=== PATIENT | male | born 1995 | race Hispanic/Latino ===

== ENCOUNTER 2018-01-29 05:10 | Emergency (ER) | payer OTHER, SELFPAY ==
[2018-01-29] MEDS ORDERED: ACETAMINOPHEN 500 MG TAB ONE ×2 (06:36→06:58)
[2018-01-29] MEDS ORDERED: NA CHLORIDE 0.9% 0 ML ONE (06:36)
[2018-01-29 06:44] LABS: Absolute Lymphocytes (CBC) 1.4 K/uL (0.7-4.9); Absolute Monocytes 1.2 K/uL (0.1-1.3); Absolute Neutrophil 7.7 K/uL (1.8-8.0); Basophils % 0.1 % (0-1.3); Eosinophils % 0.2 % (0-4.4); Hematocrit 41.6 % (39.6-49.0); Lymphocytes % 13.2 % (15.3-44.8); MCV 83.3 fL (80-100); MPV 8.1 fL (7.6-11.3); Monocytes % 12.1 % (3.3-12.3); RBC Red Blood Cell Count 4.99 M/uL (4.33-5.43)
[2018-01-29 06:58] LABS: BUN Blood Urea Nitrogen 10 mg/dL (7-18); Bicarbonate 27 mmol/L (21-32); Glucose Level 97 mg/dL (74-106); Potassium 3.7 mmol/L (3.5-5.1); Sodium Level 136 mmol/L (136-145)
[2018-01-29] MEDS ORDERED: METOCLOPRAMIDE 10 MG/2mL INJ ONE (06:58)
[2018-01-29] MEDS ORDERED: ONDANSETRON 4 MG/2 ML VIAL ONE (06:58)
[2018-01-29] MEDS ORDERED: DIPHENHYDRAMINE 50 MG/ML VIAL ONE (06:58)
[2018-01-29] MEDS ORDERED: NA CHLORIDE 0.9% 2,000 ML ONE (06:58)
[2018-01-29 08:02] LABS: Urine Blood NEGATIVE (NEG); Urine Glucose NEGATIVE (NEG); Urine Protein NEGATIVE (NEG); Urine Specific Gravity 1.015 (1.005-1.030); Urine pH 7.5 (5.0-7.0)
--- NOTE | 2018-01-29 08:04 | RAD REPORT ---
EXAM DESCRIPTION: CT - Head Brain Wo Cont - 01/29/2018 7:32 am CLINICAL HISTORY: Headache;Fever COMPARISON: No comparisons TECHNIQUE: All CT scans are performed using dose optimization technique as appropriate and may inclu de automated exposure control or mA/KV adjustment according to patient size. FINDINGS: No intracranial hemorrhage, hydrocephalus or extra-axial fluid collection.No areas of brai n edema or evidence of midline shift. The paranasal sinuses and mastoids are clear. The calvarium is intact. IMPRESSION: No acute intracranial abnormality.
--- NOTE | 2018-01-29 08:18 | EDPHYS ---
Physician Documentation [facility] Name: Geraldo Bradford IV Age: 22 yrs Sex: Male : 1995 Arrival Date: 01/29/2018 Time: 05:13 Bed 8 Private MD: ED Physician Jeferson Washington HPI: 01/29 06:21 This 22 yrs old Male presents to ER via Ambulatory with complaints of Headache.cp 06:21 The patient complains of pain to the top of head and back of head. The patient cp describes the headache as aching, constant. Onset: The symptoms/episode began/occurred 2 day(s) ago. Associated signs and symptoms: Pertinent positives: fever, Photophobia Pertinent negatives: altered mental status, neck stiffness, sinus congestion, sinus tenderness, vision loss, weakness. Severity of symptoms: in the emergency department the pain is unchanged, despite home interventions. Headache History: The patient has had previous headaches and this one is more severe than previous episodes. Historical: - Allergies: 05:24 No Known Allergies; bp - Home Meds: 05:24 None [Active]; bp - PMHx: 05:24 None; bp - Immunization history:: Adult Immunizations up to date. - Social history:: Smoking status: Patient/guardian denies using tobacco. - Ebola Screening: : Patient negative for fever greater than or equal to 101.5 degrees Fahrenheit, and additional compatible Ebola Virus Disease symptoms Patient denies exposure to infectious person Patient denies travel to an Ebola-affected area in the 21 days before illness onset No symptoms or risks identified at this time. ROS: 06:21 Constitutional: Positive for fever, Negative for body aches, chills, poor PO intake. cp 06:21 Eyes: Positive for photophobia, Negative for discharge, redness, vision loss. 06:21 ENT: Positive for sore throat, Negative for drainage from ear(s), ear pain, difficulty swallowing, difficulty handling secretions. 06:21 Cardiovascular: Negative for chest pain, edema, palpitations. 06:21 Respiratory: Negative for cough, shortness of breath, wheezing. 06:21 Abdomen/GI: Negative for abdominal pain, nausea, vomiting, and diarrhea. 06:21 : Negative for urinary symptoms. 06:21 Skin: Negative for cellulitis, rash. 06:21 Neuro: Positive for headache, Negative for altered mental status, dizziness, weakness. 06:21 All other systems are negative. Exam: 06:25 Constitutional: The patient appears in no acute distress, alert, awake, non-toxic, well cp developed, well nourished, uncomfortable. 06:25 Head/Face: Normocephalic, atraumatic. cp 06:25 Eyes: Periorbital structures: appear normal, Pupils: equal, round, and reactive to light and accomodation, Extraocular movements: intact throughout, Conjunctiva: normal, no exudate, no injection, Sclera: no appreciated abnormality, Lids and lashes: appear normal, bilaterally. 06:25 ENT: External ear(s): are unremarkable, Ear canal(s): are normal, clear, TM's: bulging, is not appreciated, bilaterally, dullness, bilaterally, erythema, is not appreciated, bilaterally, Nose: is normal, Mouth: Lips: moist, Oral mucosa: pink and intact, moist, Posterior pharynx: is normal, airway is patent, no erythema, no exudate, Voice: is normal. 06:25 Neck: ROM/movement: pain, is not appreciated, limited range of motion, is not appreciated, nuchal rigidity, is not appreciated, Lymph nodes: no appreciated lymphadenopathy. 06:25 Chest/axilla: Inspection: normal, Palpation: is normal, no crepitus, no tenderness. 06:25 Cardiovascular: Rate: normal, Rhythm: regular, Edema: is not appreciated, JVD: is not appreciated. 06:25 Respiratory: the patient does not display signs of respiratory distress, Respirations: normal, no use of accessory muscles, no retractions, no splinting, no tachypnea, labored breathing, is not present, Breath sounds: are clear throughout, no decreased breath sounds, no stridor, no wheezing. 06:25 Abdomen/GI: Inspection: abdomen appears normal, Bowel sounds: active, all quadrants, Palpation: abdomen is soft and non-tender, in all quadrants, rebound tenderness, is not appreciated, voluntary guarding, is not appreciated, involuntary guarding, is not appreciated. 06:25 Back: pain, is absent, ROM is normal. 06:25 Skin: cellulitis, is not appreciated, no rash present. cp 06:25 Neuro: Orientation: to person, place \T\ time. Mentation: lucid, able to follow commands, cp Cerebellar function: is grossly normal, Motor: moves all fours, strength is normal, Sensation: no obvious gross deficits. Vital Signs: 05:24 BP 132 / 67; Pulse 94; Resp 16; Temp 101.7; Pulse Ox 99% ; Weight 88.45 kg; Height 5 bp ft. 10 in. (177.80 cm); 05:57 BP 134 / 70; Pulse 94; Resp 16; Pulse Ox 100% ; bp 07:03 BP 119 / 68; Pulse 97; Resp 18; Pulse Ox 98% on R/A; tl2 08:00 BP 112 / 63; Pulse 78; Resp 14; Temp 99.4(O); Pulse Ox 99% on R/A; Pain 4/10; ch 08:30 BP 118 / 71; Pulse 74; Resp 18; Temp 99.6; Pulse Ox 99% on R/A; Pain 2/10; ch 05:24 Body Mass Index 27.98 (88.45 kg, 177.80 cm) bp MDM: 05:17 Patient medically screened. wa 07:00 Differential diagnosis: meningitis, meningoencephalitis, migraine, otitis, sinusitis, cp subarachnoid bleed, tension headache. 07:44 Refusal of service: The patient/guardian displays adequate decision making capability cp and despite a detailed discussion of alternatives, benefits, risks, and consequences refuses: Lumbar Puncture procedure. 08:15 Data reviewed: vital signs, nurses notes, lab test result(s), radiologic studies, CT cp scan. 08:15 Counseling: I had a detailed discussion with the patient and/or guardian regarding: the cp historical points, exam findings, and any diagnostic results supporting the discharge/admit diagnosis, lab results, radiology results. Refusal of service: The patient/guardian displays adequate decision making capability and despite a detailed discussion of alternatives, benefits, risks, and consequences refuses: Lumbar Puncture procedure. ED course: VSS. Fever and headache improved. Patient continues to refuse spinal tap. Will discharge to home for continued monitoring. 01/29 06:20 Order name: CBC with Diff; Complete Time: 06:58 cp 01/29 06:58 Interpretation: Normal except: OPAL% 74.4; LYM% 13.2. cp 01/29 06:20 Order name: Strep; Complete Time: 07:15 cp 01/29 06:20 Order name: Influenza Screen (a \T\ B); Complete Time: 07:15 cp 01/29 06:20 Order name: BMP; Complete Time: 07:15 01/29 08:05 Interpretation: Normal except: CA 8.4. 01/29 06:20 Order name: Blood Culture Adult (2) 01/29 06:20 Order name: Lactate; Complete Time: 07:15 cp 01/29 08:05 Interpretation: LAC 0.8; Reviewed. 01/29 06:20 Order name: CT Head Brain wo Cont; Complete Time: 08:05 cp 01/29 08:05 Interpretation: Report reviewed. 01/29 06:20 Order name: Procalcitonin; Complete Time: 08:04 01/29 08:04 Interpretation: Within normal limits: Procalcitonin 0.17. 01/29 07:04 Order name: Throat Culture EDMS 01/29 07:58 Order name: Urine Dipstick--Ancillary (enter results); Complete Time: 08:04 bd 01/29 08:04 Interpretation: Normal except: UPH 7.5. 01/29 06:20 Order name: IV; Complete Time: 06:50 cp Administered Medications: 07:01 Drug: Tylenol 1000 mg Route: PO; tl2 07:28 Follow up: Response: No adverse reaction; Marked relief of symptoms ch 07:01 Drug: NS 0.9% 1000 ml Route: IV; Rate: 1 bolus; Site: right antecubital; tl2 07:30 Follow up: IV Status: Completed infusion; IV Intake: 1000ml ch 07:05 Drug: Benadryl 12.5 mg Route: IVP; Site: right antecubital; bp 07:53 Follow up: Response: No adverse reaction; Marked relief of symptoms ch 07:06 Drug: Zofran 4 mg Route: IVP; Site: right antecubital; bp 07:53 Follow up: Response: No adverse reaction; Marked relief of symptoms ch 07:06 Drug: Reglan 10 mg Route: IVP; Site: right antecubital; bp 07:53 Follow up: Response: No adverse reaction; Marked relief of symptoms ch 07:54 Drug: NS 0.9% 1000 ml Route: IV; Rate: 125 ml/hr; Site: right antecubital; ch 08:30 Follow up: IV Status: Order to discontinue infusion; IV Intake: 250ml ch Disposition: 09:00 Chart complete. cp 20:44 Co-signature as Attending Physician, Jeferson Washington MD I agree with the assessment and wa plan of care. Disposition: 01/29/18 08:17 Discharged to Home. Impression: Headache, Fever, unspecified. - Condition is Stable. - Discharge Instructions: Fever, Adult, General Headache Without Cause. - Prescriptions for Ibuprofen 800 mg Oral Tablet - take 1 tablet by ORAL route every 8 hours As needed take with food; 30 tablet. Zofran 4 mg Oral Tablet - take 1 tablet by ORAL route every 12 hours As needed; 20 tablet. - Work release form, Medication Reconciliation Form, Thank You Letter, Antibiotic Education, Prescription Opioid Use form. - Follow up: Private Physician; When: 1 - 2 days; Reason: Recheck today's complaints. - Problem is new. - Symptoms have improved. Signatures: Dispatcher [employer] EDMO Lucrecia Chapman RN RN Jonnie Kendall PA PA Leida Sykes RN RN tl2 Jeferson Washington MD MD wa Peltier, Brian RN RN bp Corrections: (The following items were deleted from the chart) 07:53 07:28 LP Consents ordered. cp 07:53 07:28 LP Setup ordered. cp 08:05 08:04 Normal except. cp cp 08:35 08:17 01/29/2018 08:17 Discharged to Home. Impression: Headache; Fever, unspecified. ch Condition is Stable. Forms are Work release form, Medication Reconciliation Form, Thank You Letter, Antibiotic Education, Prescription Opioid Use. Follow up: Private Physician; When: 1 - 2 days; Reason: Recheck today's complaints. Problem is new. Symptoms have improved. cp
--- NOTE | 2018-01-29 08:18 | ER ---
Nurse's Notes [facility] Name: Geraldo Bradford IV Age: 22 yrs Sex: Male : 1995 Arrival Date: 01/29/2018 Time: 05:13 Bed 8 Private MD: Diagnosis: Headache;Fever, unspecified Presentation: 01/29 05:23 Presenting complaint: Patient states: MY HEAD BEEN HURTING FOR TWO DAYS. Transition of bp care: patient was not received from another setting of care. Onset of symptoms was January 27, 2018. Risk Assessment: Do you want to hurt yourself or someone else? Patient reports no desire to harm self or others. Initial Sepsis Screen: Does the patient meet any 2 criteria? Temp <36.0*C (96.8*F)) or > 38.3*C (100.4*F). No. Patient's initial sepsis screen is negative. Does the patient have a suspected source of infection? No. Patient's initial sepsis screen is negative. Care prior to arrival: None. 05:23 Method Of Arrival: Ambulatory bp 05:23 Acuity: MARIANNE 4 bp Triage Assessment: 05:24 Headache History: Denies prior headaches. General: Appears in no apparent distress. bp uncomfortable, ill, Behavior is cooperative, appropriate for age, anxious. Pain: Complains of pain in forehead, right eye and left eye Pain currently is 7 out of 10 on a pain scale. Pain began 2-3 days ago. Also complains of nausea, photophobia. EENT: Reports photophobia. Neuro: Level of Consciousness is awake, alert, obeys commands, Oriented to person, place, time, situation, Appropriate for age. Cardiovascular: No deficits noted. Respiratory: Airway is patent Respiratory effort is even, unlabored, Respiratory pattern is regular, symmetrical. GI: No signs and/or symptoms were reported involving the gastrointestinal system. : No signs and/or symptoms were reported regarding the genitourinary system. Derm: No deficits noted. Musculoskeletal: Circulation, motion, and sensation intact. Range of motion: intact in all extremities. Historical: - Allergies: 05:24 No Known Allergies; bp - Home Meds: 05:24 None [Active]; bp - PMHx: 05:24 None; bp - Immunization history:: Adult Immunizations up to date. - Social history:: Smoking status: Patient/guardian denies using tobacco. - Ebola Screening: : Patient negative for fever greater than or equal to 101.5 degrees Fahrenheit, and additional compatible Ebola Virus Disease symptoms Patient denies exposure to infectious person Patient denies travel to an Ebola-affected area in the 21 days before illness onset No symptoms or risks identified at this time. Screenin:28 Abuse screen: Denies threats or abuse. Denies injuries from another. Nutritional bp screening: No deficits noted. Tuberculosis screening: No symptoms or risk factors identified. Fall Risk None identified. Assessment: 05:28 General: SEE TRIAGE NOTE. bp 06:50 General: Appears in no apparent distress. comfortable, Behavior is calm, cooperative, ch appropriate for age. Pain: Complains of pain in head and face Pain currently is 8 out of 10 on a pain scale. at worst was 9 out of 10 on a pain scale. Pain began suddenly. 06:50 Neuro: Level of Consciousness is awake, alert, obeys commands, Oriented to person, ch place, time, situation, Special Warfare Operator are equal bilaterally Moves all extremities. Full function Gait is steady, Speech is normal, Facial symmetry appears normal, Facial symmetry: tongue is midline, Pupils are PERRLA, Reports headache. Cardiovascular: Heart tones S1 S2 present Capillary refill < 3 seconds in bilateral fingers toes Clubbing of nail beds is absent. Respiratory: Airway is patent Respiratory effort is even, unlabored, Breath sounds are clear bilaterally. GI: Abdomen is round non-distended, Bowel sounds present X 4 quads. Abd is soft and non tender X 4 quads. Reports nausea. : No signs and/or symptoms were reported regarding the genitourinary system. EENT: Reports nasal congestion. Derm: Skin is pink, warm \T\ dry. Musculoskeletal: Circulation, motion, and sensation intact. Capillary refill < 3 seconds, in bilateral fingers. toes. 07:52 Reassessment: Patient appears in no apparent distress at this time. Patient and/or ch family updated on plan of care and expected duration. Pain level reassessed. Patient is alert, oriented x 3, equal unlabored respirations, skin warm/dry/pink. pt refuses spinal tap. Jonnie page notified. Page in room, speaks with pt, pt still refuses spinal tap after verb understanding that we cannot rule out meningitis without it. pt verb understanding of risks Patient states feeling better. Patient states symptoms have improved. 08:00 Reassessment: Patient appears in no apparent distress at this time. Patient and/or ch family updated on plan of care and expected duration. Pain level reassessed. Patient is alert, oriented x 3, equal unlabored respirations, skin warm/dry/pink. Patient states feeling better. Patient states symptoms have improved. 08:30 Reassessment: Patient appears in no apparent distress at this time. No changes from previously documented assessment. Patient and/or family updated on plan of care and expected duration. Pain level reassessed. Patient is alert, oriented x 3, equal unlabored respirations, skin warm/dry/pink. Patient denies pain at this time. Patient states feeling better. Patient states symptoms have improved. Vital Signs: 05:24 BP 132 / 67; Pulse 94; Resp 16; Temp 101.7; Pulse Ox 99% ; Weight 88.45 kg; Height 5 bp ft. 10 in. (177.80 cm); 05:57 BP 134 / 70; Pulse 94; Resp 16; Pulse Ox 100% ; bp 07:03 BP 119 / 68; Pulse 97; Resp 18; Pulse Ox 98% on R/A; tl2 08:00 BP 112 / 63; Pulse 78; Resp 14; Temp 99.4(O); Pulse Ox 99% on R/A; Pain 4/10; ch 08:30 BP 118 / 71; Pulse 74; Resp 18; Temp 99.6; Pulse Ox 99% on R/A; Pain 2/10; ch 05:24 Body Mass Index 27.98 (88.45 kg, 177.80 cm) bp ED Course: 05:13 Patient arrived in ED. do 05:17 Jeferson Washington MD is Attending Physician. wa 05:23 Carlos Frankel, QIAN is Primary Nurse. bp 05:24 Triage completed. bp 05:24 Arm band placed on left wrist. bp 05:28 Patient has correct armband on for positive identification. Bed in low position. Call bp light in reach. Side rails up X2. 06:13 Jonnie Kendall PA is PHCP. cp 06:13 Jeferson Washington MD is Attending Physician. cp 06:30 Inserted saline lock: 20 gauge in right antecubital area, using aseptic technique. ch 07:32 CT Head Brain wo Cont In Process Unspecified. EDMS 08:30 Pulse ox on. NIBP on. ch 08:30 No provider procedures requiring assistance completed. IV discontinued, intact, ch bleeding controlled, No redness/swelling at site. Pressure dressing applied. Administered Medications: 07:01 Drug: Tylenol 1000 mg Route: PO; tl2 07:28 Follow up: Response: No adverse reaction; Marked relief of symptoms ch 07:01 Drug: NS 0.9% 1000 ml Route: IV; Rate: 1 bolus; Site: right antecubital; tl2 07:30 Follow up: IV Status: Completed infusion; IV Intake: 1000ml ch 07:05 Drug: Benadryl 12.5 mg Route: IVP; Site: right antecubital; bp 07:53 Follow up: Response: No adverse reaction; Marked relief of symptoms ch 07:06 Drug: Zofran 4 mg Route: IVP; Site: right antecubital; bp 07:53 Follow up: Response: No adverse reaction; Marked relief of symptoms ch 07:06 Drug: Reglan 10 mg Route: IVP; Site: right antecubital; bp 07:53 Follow up: Response: No adverse reaction; Marked relief of symptoms ch 07:54 Drug: NS 0.9% 1000 ml Route: IV; Rate: 125 ml/hr; Site: right antecubital; ch 08:30 Follow up: IV Status: Order to discontinue infusion; IV Intake: 250ml ch Intake: 07:30 IV: 1000ml; Total: 1000ml. ch 08:30 IV: 250ml; Total: 1250ml. ch Outcome: 08:17 Discharge ordered by . cp 08:30 Discharged to home ambulatory, with family. ch 08:30 Condition: stable 08:30 Discharge instructions given to patient, family, Instructed on discharge instructions, follow up and referral plans. medication usage, Demonstrated understanding of instructions, follow-up care, medications, Prescriptions given X 2. 08:35 Patient left the ED. ch Signatures: Dispatcher [employer] EDMS Lucrecia Chapman RN RN ch Jonnie Kendall PA PA cp Ogletree, Danielle do Knox, Taylor RN RN tl2 Jeferson Washington MD MD wa Peltier, Brian RN RN bp
== END 2018-01-29 08:35 | disposition home or self-care (01) ==
LOC: ER 05:10
DX: R51 Headache (principal)
CPT/HCPCS: 36415; 70450; 80048; 81003; 83605; 84145; 85025; 87040; 87070; 87081; 87804; 96361; 96374; 96375; 99284; J2405; J2765; J7030

== ENCOUNTER 2021-02-21 15:12 | Emergency (ER) | payer SELFPAY ==
--- NOTE | 2021-02-21 18:46 | EDPHYS ---
Physician Documentation [facility] Name: Geraldo Bradford IV Age: 25 yrs Sex: Male : 1995 Arrival Date: 02/21/2021 Time: 15:15 Bed Waiting Private MD: ED Physician David Gastelum HPI: 02/21 16:08 This 25 yrs old Male presents to ER via Ambulatory with complaints of pm1 Dizziness. 16:08 The patient complains of pain to the forehead. The patient describes the headache as pm1 aching. Onset: The symptoms/episode began/occurred this morning. Associated signs and symptoms: The patient has no apparent associated signs or symptoms, Pertinent negatives: nausea, neck stiffness, rash, vomiting. Severity of symptoms: in the emergency department the pain has resolved, With sleep. The symptoms are alleviated by sleep, the symptoms are aggravated by nothing. The patient has not experienced similar symptoms in the past. The patient has not recently seen a physician. Patient with onset headache and dizziness this morning. Went back to sleep and his headache resolved. Informed his employer that he was having a headache and was instructed to get a return back to work and a Covid test. Historical: - Allergies: 15:54 No Known Allergies; kg - Home Meds: 15:54 None [Active]; kg - PMHx: 15:54 None; kg - PSHx: 15:54 None; kg - Immunization history:: Adult Immunizations not up to date, Client reports having NOT received the Covid vaccine. - Social history:: Smoking status: Patient denies any tobacco usage or history of. Patient uses alcohol, weekly. ROS: 16:08 Constitutional: Negative for fever, chills, and weight loss, Cardiovascular: Negative pm1 for chest pain, palpitations, and edema, Respiratory: Negative for shortness of breath, cough, wheezing, and pleuritic chest pain, Abdomen/GI: Negative for abdominal pain, nausea, vomiting, diarrhea, and constipation, Back: Negative for injury and pain, MS/Extremity: Negative for injury and deformity, Skin: Negative for injury, rash, and discoloration. 16:08 Neuro: Positive for dizziness, headache, Negative for numbness, tingling, weakness. 16:08 All other systems are negative. Exam: 16:08 Constitutional: This is a well developed, well nourished patient who is awake, alert, pm1 and in no acute distress. Head/Face: Normocephalic, atraumatic. 16:08 Skin: Warm, dry with normal turgor. Normal color with no rashes, no lesions, and no evidence of cellulitis. MS/ Extremity: Pulses equal, no cyanosis. Neurovascular intact. Full, normal range of motion. 16:08 Eyes: Exam is negative for acute changes, Periorbital structures: appear normal, Pupils: no acute changes, Extraocular movements: no acute changes, Conjunctiva: no acute changes, no injection, Sclera: no acute changes, icterus, is not appreciated. 16:08 ENT: Exam is negative for acute changes, TM's: no acute changes, Nose: no acute changes, Mouth: is normal, no acute changes, Posterior pharynx: Tonsils: bilaterally enlarged, with erythema, no exudate, no ulcerations, erythema, that is mild, peritonsillar mass, is not appreciated, pooling of secretions, is not appreciated. 16:08 Neck: Exam negative for acute changes, ROM/movement: no acute changes. 16:08 Chest/axilla: Exam negative for acute changes. 16:08 Cardiovascular: Rate: normal, Rhythm: regular, Pulses: no pulse deficits are appreciated. 16:08 Respiratory: Exam negative for acute changes, respiratory distress, shortness of breath. 16:08 Neuro: Exam negative for acute changes, Orientation: is normal, Mentation: is normal, Cranial nerves: CN II- XII are normal as tested, Motor: is normal, moves all fours, Gait: is steady, at a normal pace, without difficulty. Vital Signs: 15:54 BP 142 / 89; Pulse 78; Resp 18; Temp 98.0(TE); Pulse Ox 100% on R/A; Weight 97.52 kg; kg Height 5 ft. 10 in. (177.80 cm); Pain 7/10; 15:54 Body Mass Index 30.85 (97.52 kg, 177.80 cm) kg MDM: 16:13 Data reviewed: vital signs. Data interpreted: Pulse oximetry: on room air is 100 %. pm1 Interpretation: normal. 16:13 Patient medically screened. pm1 18:44 ED course: Patient has appointment with local pharmacy for covid testing on Sunday. pm1 Recommended to the patient to keep appointment and get testing so he can return to work safely.. 18:45 Counseling: I had a detailed discussion with the patient and/or guardian regarding: the pm1 historical points, exam findings, and any diagnostic results supporting the discharge/admit diagnosis, lab results, the need for outpatient follow up, to return to the emergency department if symptoms worsen or persist or if there are any questions or concerns that arise at home. 02/21 16:07 Order name: Strep; Complete Time: 18:44 pm1 02/21 18:20 Order name: Throat Culture EDMS 02/21 18:40 Order name: SARS-COV-2 RT PCR; Complete Time: 18:44 EDMS Administered Medications: No medications were administered Disposition: 02/22 06:58 Co-signature as Attending Physician, David Gastelum MD I agree with the assessment and rn plan of care. Attestation: The patient's history, exam findings, diagnostics, and a summary of any interventions or procedures was reviewed in detail with Gene Trevizo NP. Disposition Summary: 02/21/21 18:45 Discharge Ordered Location: Home pm1 Problem: new pm1 Symptoms: have improved pm1 Condition: Stable pm1 Diagnosis - Headache pm1 - Acute pharyngitis, unspecified pm1 Followup: pm1 - With: Emergency Department - When: As needed - Reason: Worsening of condition Followup: pm1 - With: Private Physician - When: 2 - 3 days - Reason: Recheck today's complaints, Continuance of care, Re-evaluation by your physician Discharge Instructions: - Discharge Summary Sheet pm1 - General Headache Without Cause pm1 - Pharyngitis pm1 Forms: - Medication Reconciliation Form pm1 - Thank You Letter pm1 - Work release form pm1 - Antibiotic Education pm1 - Prescription Opioid Use pm1 Signatures: Dispatcher [employer] EDMS David Gastelum MD MD rn Marinas, Patrick, NP COMMUNITY HEALTH EDUCATION COORDINATOR pm1 Crystal Dang RN RN kg Corrections: (The following items were deleted from the chart) 02/21 17:46 16:08 CORONAVIRUS+ ordered. EDMS EDMS
--- NOTE | 2021-02-21 18:46 | ER ---
Nurse's Notes [facility] Name: Geraldo Bradford IV Age: 25 yrs Sex: Male : 1995 Arrival Date: 02/21/2021 Time: 15:15 Bed Waiting Private MD: Diagnosis: Headache;Acute pharyngitis, unspecified Presentation: 02/21 15:52 Chief complaint: Patient states: Lightheaded and dizziness starting this AM. kg Coronavirus screen: Client denies travel out of the [place] in the last 14 days. At this time, unable to obtain information related to travel outside the [place] At this time, the client does not indicate any symptoms associated with coronavirus-19. Ebola Screen: Patient negative for fever greater than or equal to 101.5 degrees Fahrenheit, and additional compatible Ebola Virus Disease symptoms Patient denies exposure to infectious person. Patient denies travel to an Ebola-affected area in the 21 days before illness onset. Initial Sepsis Screen: Does the patient meet any 2 criteria? No. Patient's initial sepsis screen is negative. Does the patient have a suspected source of infection? No. Patient's initial sepsis screen is negative. Risk Assessment: Do you want to hurt yourself or someone else? Patient reports no desire to harm self or others. Onset of symptoms was February 21, 2021 at 04:30. 15:52 Method Of Arrival: Ambulatory kg 15:52 Acuity: MARIANNE 4 kg Triage Assessment: 15:54 General: Appears in no apparent distress. Behavior is calm, cooperative, appropriate kg for age, quiet. Pain: Complains of pain in Head Pain currently is 7 out of 10 on a pain scale. Quality of pain is described as throbbing. Historical: - Allergies: 15:54 No Known Allergies; kg - Home Meds: 15:54 None [Active]; kg - PMHx: 15:54 None; kg - PSHx: 15:54 None; kg - Immunization history:: Adult Immunizations not up to date, Client reports having NOT received the Covid vaccine. - Social history:: Smoking status: Patient denies any tobacco usage or history of. Patient uses alcohol, weekly. Screenin:59 Abuse screen: Denies threats or abuse. Denies injuries from another. Nutritional kg screening: No deficits noted. Tuberculosis screening: No symptoms or risk factors identified. Fall Risk None identified. Vital Signs: 15:54 BP 142 / 89; Pulse 78; Resp 18; Temp 98.0(TE); Pulse Ox 100% on R/A; Weight 97.52 kg; kg Height 5 ft. 10 in. (177.80 cm); Pain 7/10; 15:54 Body Mass Index 30.85 (97.52 kg, 177.80 cm) kg ED Course: 15:15 Patient arrived in ED. ds1 15:54 Triage completed. kg 15:54 Arm band placed on right wrist. kg 15:59 Patient has correct armband on for positive identification. kg 16:07 Gene Trevizo NP is PHCP. pm1 16:07 David Gastelum MD is Attending Physician. pm1 19:08 No provider procedures requiring assistance completed. Patient did not have IV access kg during this emergency room visit. Administered Medications: No medications were administered Outcome: 18:45 Discharge ordered by MD. pm1 19:08 Discharged to home ambulatory. kg 19:08 Condition: good 19:08 Discharge instructions given to patient, Instructed on discharge instructions, follow up and referral plans. Demonstrated understanding of instructions, follow-up care. 19:09 Patient left the ED. kg Signatures: Bianca Tobias ds1 Gene Trevizo NP [employer] pm1 Crystal Dang, RN RN kg
[2021-02-21 19:14] VITALS: BP 142/89; TEMP 98; O2SAT 100
== END 2021-02-21 19:09 | disposition home or self-care (01) ==
LOC: ER 15:12
DX: J02.9 Acute pharyngitis, unspecified (principal); Z20.822 Contact with and (suspected) exposure to COVID-19
CPT/HCPCS: 87070; 87081; 99281; U0003

== ENCOUNTER 2022-07-21 06:28 | Emergency (ER) | payer SELFPAY ==
[2022-07-21] MEDS ORDERED: AZITHROMYCIN 250 MG TAB ONE (07:11)
--- NOTE | 2022-07-21 07:32 | RAD REPORT ---
EXAM DESCRIPTION: Tali Single View07/21/2022 6:55 am CLINICAL HISTORY: Cough COMPARISON: none FINDINGS: The lungs appear clear of acute infiltrate. The heart is normal size IMPRESSION: No acute abnormalities displayed
[2022-07-21 07:33] LABS: SARS-COV-2 RT PCR NEGATIVE (NEGATIVE)
[2022-07-21] MEDS ORDERED: dexAMETHasone 10 MG/ML VIAL ONE (07:42)
--- NOTE | 2022-07-21 07:43 | ER ---
Nurse's Notes [facility] Name: Geraldo Bradford IV Age: 26 yrs Sex: Male : 1995 Arrival Date: 07/21/2022 Time: 06:32 Bed 5 Private MD: Diagnosis: Acute pharyngitis, unspecified;Cough;Acute upper respiratory infection, unspecified;Fever, unspecified Presentation: 07/21 06:39 Chief complaint: Patient states: congestion, sore throat and cough starting yesterday lg3 and getting worse. denies any fever. Coronavirus screen: Client denies travel out of the [place] in the last 14 days. Client presents with at least one sign or symptom that may indicate coronavirus-19. Standard/surgical mask placed on the client. Ebola Screen: No symptoms or risks identified at this time. Risk Assessment: Do you want to hurt yourself or someone else? Patient reports no desire to harm self or others. Onset of symptoms was July 20, 2022. 06:39 Method Of Arrival: Ambulatory lg3 06:39 Acuity: MARIANNE 4 lg3 07:41 Initial Sepsis Screen: Does the patient meet any 2 criteria? No. Patient's initial ll1 sepsis screen is negative. Does the patient have a suspected source of infection? Yes: Productive cough/pneumonia. Triage Assessment: 06:40 General: Appears in no apparent distress. comfortable, Behavior is calm, cooperative, lg3 appropriate for age. Pain: Complains of pain in throat. EENT:. Neuro: No deficits noted. Serrato Agitation-Sedation Scale (RASS): 0 - Alert and Calm Level of Consciousness is awake, alert, obeys commands, Oriented to person, place, time, situation. Cardiovascular: No deficits noted. Denies chest pain, shortness of breath, Capillary refill < 3 seconds Clubbing of nail beds is absent JVD is absent Patient's skin is warm and dry. Respiratory: Reports cough that is Airway is patent Trachea midline Respiratory effort is even, unlabored, Respiratory pattern is regular, symmetrical. GI: No deficits noted. No signs and/or symptoms were reported involving the gastrointestinal system. : No deficits noted. No signs and/or symptoms were reported regarding the genitourinary system. Derm: No deficits noted. No signs and/or symptoms reported regarding the dermatologic system. Skin is intact, is healthy with good turgor, Skin is dry, Skin is normal. Musculoskeletal: No deficits noted. No signs and/or symptoms reported regarding the musculoskeletal system. Circulation, motion, and sensation intact. Range of motion: intact in all extremities. Historical: - Allergies: 06:40 No Known Allergies; lg3 - Home Meds: 06:40 None [Active]; lg3 - PMHx: 06:40 None; lg3 - PSHx: 06:40 None; lg3 - Immunization history:: Adult Immunizations unknown, Client reports having NOT received the Covid vaccine. Flu vaccine is not up to date. - Social history:: Smoking status: Patient denies any tobacco usage or history of. Patient/guardian denies using alcohol, street drugs, IV drugs. - Family history:: not pertinent. Screenin:42 [facility] ED Fall Risk Assessment (Adult) History of falling in the last 3 months, lg3 including since admission No falls in past 3 months (0 pts). Abuse screen: Denies threats or abuse. Denies injuries from another. Nutritional screening: No deficits noted. Tuberculosis screening: No symptoms or risk factors identified. Assessment: 06:42 General: Appears in no apparent distress. comfortable, well groomed, well developed, pf1 Behavior is calm, cooperative, appropriate for age, quiet. Pain: Complains of pain in head and sore throat Pain currently is 7 out of 10 on a pain scale. Neuro: Level of Consciousness is awake, alert, obeys commands, Oriented to person, place, time, situation. Cardiovascular: No deficits noted. Respiratory: Airway is patent Trachea midline Respiratory effort is even, unlabored, Respiratory pattern is regular, symmetrical, Breath sounds are clear bilaterally. Respiratory: Reports cough that is with congestion. GI: No deficits noted. No signs and/or symptoms were reported involving the gastrointestinal system. : No deficits noted. No signs and/or symptoms were reported regarding the genitourinary system. EENT: Reports nasal congestion since yesterday with sore throat. Derm: No deficits noted. No signs and/or symptoms reported regarding the dermatologic system. Musculoskeletal: No deficits noted. No signs and/or symptoms reported regarding the musculoskeletal system. 07:00 Reassessment: No changes from previously documented assessment. report received from 1 night time babysitter RN. 08:13 EENT: Throat is clear. ll1 Vital Signs: 06:35 BP 134 / 93; Pulse 69; Resp 18; Temp 98.6(O); Pulse Ox 100% on R/A; Pain 7/10; pf1 07:42 BP 137 / 88; Pulse 69; Pulse Ox 100% ; ll1 ED Course: 06:32 Patient arrived in ED. ja2 06:38 Jonnie Feldman MD is Attending Physician. dhaval 06:40 Triage completed. lg3 06:40 Arm band placed on right wrist. lg3 06:42 Patient has correct armband on for positive identification. Placed in gown. Bed in low lg3 position. Call light in reach. Side rails up X 1. Client placed on continuous cardiac and pulse oximetry monitoring. NIBP monitoring applied. Door closed. Noise minimized. Warm blanket given. 06:57 Chest Single View XRAY In Process Unspecified. EDNH 07:11 Moustapha Howell, RN is Primary Nurse. ll1 07:41 No provider procedures requiring assistance completed. Patient did not have IV access ll1 during this emergency room visit. Administered Medications: 07:10 Drug: Zithromax (azithromycin) 500 mg Route: PO; ll1 07:59 Follow up: Response: No adverse reaction ll1 07:45 Drug: Decadron (dexamethasone) 10 mg Route: IM; Site: right gluteus; ll1 08:12 Follow up: Response: No adverse reaction ll1 Medication: 07:41 VIS not applicable for this client. ll1 Outcome: 07:43 Discharge ordered by . dhaval 08:11 Patient left the ED. ll1 08:11 Discharged to home ambulatory. ll1 08:11 Condition: stable 08:11 Discharge instructions given to patient, family, Instructed on discharge instructions, follow up and referral plans. medication usage, Demonstrated understanding of instructions, follow-up care, medications, Prescriptions given X 3. Signatures: Dispatcher [employer] EDNH Jonnie Feldman MD MD cha Gibson, Lacie, RN RN lg3 Moustapha Howell, QIAN RN ll1 Elizabeth Mc 2 Fang mancera RN RN pf1
--- NOTE | 2022-07-21 07:44 | EDPHYS ---
Physician Documentation [facility] Name: Geraldo Bradford IV Age: 26 yrs Sex: Male : 1995 Arrival Date: 07/21/2022 Time: 06:32 Bed 5 Private MD: ED Physician Jonnie Feldman HPI: 07/21 07:04 This 26 yrs old Male presents to ER via Ambulatory with complaints of Sore dhaval Throat, Congestion, Cough. 07:04 The patient presents with sore throat. The patient describes throat pain as constant, dhaval raw, scratchy. Onset: The symptoms/episode began/occurred 2 day(s) ago. Severity of symptoms: At their worst the symptoms were moderate, in the emergency department the symptoms are unchanged. Modifying factors: The symptoms are alleviated by fluids, the symptoms are aggravated by swallowing. Associated signs and symptoms: The patient has no apparent associated signs or symptoms. The patient has experienced a previous episode, last year. Historical: - Allergies: 06:40 No Known Allergies; lg3 - Home Meds: 06:40 None [Active]; lg3 - PMHx: 06:40 None; lg3 - PSHx: 06:40 None; lg3 - Immunization history:: Adult Immunizations unknown, Client reports having NOT received the Covid vaccine. Flu vaccine is not up to date. - Social history:: Smoking status: Patient denies any tobacco usage or history of. Patient/guardian denies using alcohol, street drugs, IV drugs. - Family history:: not pertinent. ROS: 07:04 Constitutional: Negative for fever, chills, and weight loss, Eyes: Negative for injury, dhaval pain, redness, and discharge, Neck: Negative for injury, pain, and swelling, Cardiovascular: Negative for chest pain, palpitations, and edema, Abdomen/GI: Negative for abdominal pain, nausea, vomiting, diarrhea, and constipation, Back: Negative for injury and pain, : Negative for injury, bleeding, discharge, and swelling, MS/Extremity: Negative for injury and deformity, Skin: Negative for injury, rash, and discoloration, Neuro: Negative for headache, weakness, numbness, tingling, and seizure. 07:04 Eyes: Positive for pain. Exam: 07:04 Constitutional: This is a well developed, well nourished patient who is awake, alert, dhaval and in no acute distress. Head/Face: Normocephalic, atraumatic. Eyes: Pupils equal round and reactive to light, extra-ocular motions intact. Lids and lashes normal. Conjunctiva and sclera are non-icteric and not injected. Cornea within normal limits. Periorbital areas with no swelling, redness, or edema. Neck: Trachea midline, no thyromegaly or masses palpated, and no cervical lymphadenopathy. Supple, full range of motion without nuchal rigidity, or vertebral point tenderness. No Meningismus. Chest/axilla: Normal chest wall appearance and motion. Nontender with no deformity. No lesions are appreciated. Cardiovascular: Regular rate and rhythm with a normal S1 and S2. No gallops, murmurs, or rubs. Normal PMI, no JVD. No pulse deficits. Respiratory: Lungs have equal breath sounds bilaterally, clear to auscultation and percussion. No rales, rhonchi or wheezes noted. No increased work of breathing, no retractions or nasal flaring. Abdomen/GI: Soft, non-tender, with normal bowel sounds. No distension or tympany. No guarding or rebound. No evidence of tenderness throughout. Back: No spinal tenderness. No costovertebral tenderness. Full range of motion. Skin: Warm, dry with normal turgor. Normal color with no rashes, no lesions, and no evidence of cellulitis. MS/ Extremity: Pulses equal, no cyanosis. Neurovascular intact. Full, normal range of motion. Neuro: Awake and alert, GCS 15, oriented to person, place, time, and situation. Cranial nerves II-XII grossly intact. Motor strength 5/5 in all extremities. Sensory grossly intact. Cerebellar exam normal. Normal gait. Psych: Awake, alert, with orientation to person, place and time. Behavior, mood, and affect are within normal limits. 07:04 ENT: Mouth: no acute changes, Lips: normal, Oral mucosa: moist, Gums: Tongue: is normal, Posterior pharynx: Tonsils: bilaterally enlarged, Uvula: midline, erythema. Vital Signs: 06:35 BP 134 / 93; Pulse 69; Resp 18; Temp 98.6(O); Pulse Ox 100% on R/A; Pain 7/10; pf1 07:42 BP 137 / 88; Pulse 69; Pulse Ox 100% ; ll1 MDM: 06:46 Patient medically screened. [facility] 07:16 Differential diagnosis: Allergic rhinitis, bronchitis, group A strep tonsillitis, dhaval influenza, laryngitis, peritonsillar abscess pharyngitis, tonsillitis, upper respiratory infection, uvulitis. Data reviewed: vital signs, nurses notes, lab test result(s), radiologic studies, plain films. Consideration of Admission/Observation Patient was admitted/placed on observation. Escalation of care including admission/observation considered. I considered the following discharge prescriptions or medication management in the emergency department Medications were administered in the Emergency Department. See MAR. Test considered but Not performed: Other Details ct soft tissue. Historians other than the Patient: Spouse/Significant Other: girlfriend. 07/21 06:44 Order name: COVID-19/FLU A+B; Complete Time: 07:37 lg3 07/21 06:44 Order name: Strep; Complete Time: 07:18 lg3 07/21 06:47 Order name: Chest Single View XRAY; Complete Time: 07:37 wm 07/21 07:15 Order name: Throat Culture EDMS Administered Medications: 07:10 Drug: Zithromax (azithromycin) 500 mg Route: PO; ll1 07:59 Follow up: Response: No adverse reaction ll1 07:45 Drug: Decadron (dexamethasone) 10 mg Route: IM; Site: right gluteus; ll1 08:12 Follow up: Response: No adverse reaction ll1 Disposition Summary: 07/21/22 07:43 Discharge Ordered Location: Home dhaval Problem: new dhaval Symptoms: have improved dhaval Condition: Stable dhaval Diagnosis - Acute pharyngitis, unspecified dhaval - Cough dhaval - Acute upper respiratory infection, unspecified dhaval - Fever, unspecified dhaval Followup: dhaval - With: Private Physician - When: 2 - 3 days - Reason: Recheck today's complaints, Continuance of care, Re-evaluation by your physician Discharge Instructions: - Discharge Summary Sheet dhaval - Fever, Adult dhaval - Pharyngitis dhaval - Sore Throat dhaval - Upper Respiratory Infection, Adult dhaval - Cool Mist Vaporizer dhaval - Upper Respiratory Infection, Adult, [id number] dhaval - Pharyngitis, [id number] dhaval - Cough, Adult dhaval Forms: - Medication Reconciliation Form dhaval - Thank You Letter dhaval - Antibiotic Education dhaval - Prescription Opioid Use dhaval - Work release form ss Prescriptions: - Tessalon Perles 100 mg Oral Capsule - take 2 capsule by ORAL route every 8 hours As needed; 30 capsule; Refills: 0, [facility] Product Selection Permitted - Zithromax 500 mg Oral Tablet - take 1 tablet by ORAL route once daily for 5 days; 5 tablet; Refills: 0, [facility] Product Selection Permitted - Evelia-D 12 Hour 60-120 mg Oral tablet extended release 12 hr - take 1 tablet by ORAL route every 12 hours As needed; 28 tablet; Refills: 0, [facility] Product Selection Permitted Signatures: Dispatcher [employer] EDJonnie Pandey MD MD cha Gibson, Lacie RN RN lg3 Moustapha Howell RN RN ll1
[2022-07-21 08:21] VITALS: TEMP 98.6; O2SAT 100
[2022-07-21 08:22] VITALS: BP 137/88
== END 2022-07-21 08:11 | disposition home or self-care (01) ==
LOC: ER 06:28
DX: J06.9 Acute upper respiratory infection, unspecified (principal); R50.9 Fever, unspecified; J02.9 Acute pharyngitis, unspecified; Z20.822 Contact with and (suspected) exposure to COVID-19
CPT/HCPCS: 0240U; 71045; 87070; 87081; 96372; 99283; J1100; Q0144

== ENCOUNTER 2023-02-21 02:34 | Emergency (ER) | payer SELFPAY ==
[2023-02-21] MEDS ORDERED: KETOROLAC 30 MG/ML INJ ONE ×2 (03:21→05:33)
[2023-02-21] MEDS ORDERED: ONDANSETRON 4 MG/2 ML VIAL ONE (03:21)
[2023-02-21] MEDS ORDERED: NA CHLORIDE 0.9% 1,000 ML ONE (03:21)
[2023-02-21 03:34] LABS: Absolute Lymphocytes (CBC) 3.8 K/uL (0.7-4.9); Hematocrit 44.3 % (39.6-49.0); Lymphocytes % 32.3 % (15.3-44.8); MCV 83.9 fL (80-100); MPV 7.9 fL (7.6-11.3); Platelets 273 thou/uL (152-406); RBC Red Blood Cell Count 5.29 M/uL (4.33-5.43)
[2023-02-21 03:58] LABS: Albumin 3.8 g/dL (3.4-5.0); Potassium 3.6 mEq/L (3.5-5.1); Protein, Total 7.4 g/dL (6.4-8.2)
--- NOTE | 2023-02-21 05:18 | EDPHYS ---
Physician Documentation [facility] Name: Geraldo Bradford IV Age: 27 yrs Sex: Male : 1995 Arrival Date: 02/21/2023 Time: 02:34 Bed 7 Private MD: ED Physician Laura Carpenter HPI: 02/21 03:04 This 27 yrs old Male presents to ER via Ambulatory with complaints of sp3 Abdominal Pain. 03:04 26-year-old male with history of acid reflux presents to the ED with epigastric pain x3 sp3 days. Patient did have heavy alcohol intake several days ago. He denies any significant surgical history. Pain is described as sharp and epigastric and "comes and goes" in pattern. On review of systems, he denies fever, headache, URI symptoms, neck pain, chest pain, shortness of breath, lower back pain, lower abdominal pain, diarrhea, rash, known sick contacts, travel history, or any other signs or symptoms at this time.. Historical: - Allergies: 02:58 No Known Allergies; pf1 - PMHx: 02:58 acid reflux; pf1 - PSHx: 02:58 None; pf1 - Immunization history:: Adult Immunizations up to date, Client reports having NOT received the Covid vaccine. Last tetanus immunization: < 5 years ago Flu vaccine is not up to date. - Social history:: Smoking status: Patient denies any tobacco usage or history of. Patient uses alcohol, weekly. Patient/guardian denies using street drugs. ROS: 03:05 Constitutional: Negative for fever, chills, and weight loss, Eyes: Negative for injury, sp3 pain, redness, and discharge, ENT: Negative for injury, pain, and discharge, Neck: Negative for injury, pain, and swelling, Cardiovascular: Negative for chest pain, palpitations, and edema, Respiratory: Negative for shortness of breath, cough, wheezing, and pleuritic chest pain, Back: Negative for injury and pain, MS/Extremity: Negative for injury and deformity, Skin: Negative for injury, rash, and discoloration, Neuro: Negative for headache, weakness, numbness, tingling, and seizure, Psych: Negative for depression, anxiety, suicide ideation, homicidal ideation, and hallucinations, Allergy/Immunology: Negative for hives, rash, and allergies, Endocrine: Negative for neck swelling, polydipsia, polyuria, polyphagia, and marked weight changes, Hematologic/Lymphatic: Negative for swollen nodes, abnormal bleeding, and unusual bruising. 03:05 All other systems are negative. Exam: 03:05 Constitutional: This is a well developed, well nourished patient who is awake, alert, sp3 and in no acute distress. Head/Face: Normocephalic, atraumatic. Eyes: Pupils equal round and reactive to light, extra-ocular motions intact. Lids and lashes normal. Conjunctiva and sclera are non-icteric and not injected. Cornea within normal limits. Periorbital areas with no swelling, redness, or edema. Neck: Trachea midline, no thyromegaly or masses palpated, and no cervical lymphadenopathy. Supple, full range of motion without nuchal rigidity, or vertebral point tenderness. No Meningismus. Chest/axilla: Normal chest wall appearance and motion. Nontender with no deformity. No lesions are appreciated. Cardiovascular: Regular rate and rhythm with a normal S1 and S2. No gallops, murmurs, or rubs. Normal PMI, no JVD. No pulse deficits. Respiratory: Lungs have equal breath sounds bilaterally, clear to auscultation and percussion. No rales, rhonchi or wheezes noted. No increased work of breathing, no retractions or nasal flaring. Back: No spinal tenderness. No costovertebral tenderness. Full range of motion. Skin: Warm, dry with normal turgor. Normal color with no rashes, no lesions, and no evidence of cellulitis. MS/ Extremity: Pulses equal, no cyanosis. Neurovascular intact. Full, normal range of motion. Neuro: Awake and alert, GCS 15, oriented to person, place, time, and situation. Cranial nerves II-XII grossly intact. Motor strength 5/5 in all extremities. Sensory grossly intact. Cerebellar exam normal. Normal gait. Psych: Awake, alert, with orientation to person, place and time. Behavior, mood, and affect are within normal limits. 03:05 Abdomen/GI: emesis/gastric contents smell of Epigastric pain to palpation noted without peritoneal signs, rebound or guarding. Patient vital signs are normal and patient is in no acute distress.. Vital Signs: 02:50 BP 123 / 98; Pulse 64; Resp 18; Temp 97.8; Pulse Ox 100% on R/A; Weight 104.33 kg; pf1 Height 5 ft. 10 in. ; Pain 10/10; 03:13 BP 136 / 93; Pulse 59; Resp 15; Pulse Ox 98% on R/A; kd3 03:41 BP 137 / 70; Pulse 50; Resp 18; Pulse Ox 100% on R/A; kd3 05:29 BP 127 / 88; Pulse 58; Resp 18; Temp 98; Pulse Ox 99% on R/A; rv 06:56 BP 131 / 76; Pulse 59; Resp 16; Temp 98; Pulse Ox 99% on R/A; rv 02:50 Body Mass Index 33.00 (104.33 kg, 177.8 cm) pf1 02:50 Pain Scale: Adult pf1 Jose Enriuqe Coma Score: 05:30 Eye Response: spontaneous(4). Motor Response: obeys commands(6). Verbal Response: rv oriented(5). Total: 15. 06:57 Eye Response: spontaneous(4). Motor Response: obeys commands(6). Verbal Response: rv oriented(5). Total: 15. MDM: 03:01 Patient medically screened. sp3 03:06 Data reviewed: vital signs, nurses notes, lab test result(s), radiologic studies. ED sp3 course: 27-year-old male with epigastric pain. Differential diagnosis includes gastritis/GERD, pancreatitis, biliary pathology, intestinal pathology enterocolitis, among others. I am not highly suspicious for vascular pathology including aortic dissection or aneurysm, mesenteric ischemia, or any other critical concerns or concerning findings at this time.. 05:16 ED course: CT scan demonstrates multiple areas of small and large bowel inflammation sp3 consistent with colitis. Hepatic fatty liver also noted. We will administer Cipro and Flagyl IV and discharged on same with PCP follow-up.. 02/21 03:02 Order name: CBC with Diff; Complete Time: 04:12 sp3 02/21 03:02 Order name: CMP; Complete Time: 04:12 sp3 02/21 03:02 Order name: Lipase; Complete Time: 04:12 sp3 02/21 03:02 Order name: Urinalysis w/ reflexes sp3 02/21 03:02 Order name: Abdomen Limited US sp3 02/21 03:02 Order name: CT Abd/Pelvis - IV Contrast Only sp3 02/21 03:02 Order name: IV Saline Lock; Complete Time: 03:13 sp3 02/21 03:02 Order name: Labs collected and sent; Complete Time: 03:13 sp3 Administered Medications: 03:14 Drug: NS 0.9% IV 1000 ml Route: IV; Rate: 1 bolus; Site: right antecubital; rv 05:29 Follow up: IV Status: Completed infusion; IV Intake: 1000ml rv 03:14 Drug: Ketorolac IVP 30 mg Route: IVP; Site: right antecubital; rv 05:29 Follow up: Response: No adverse reaction rv 03:14 Drug: Ondansetron IVP 4 mg Route: IVP; Site: right antecubital; rv 05:29 Follow up: Response: No adverse reaction rv 05:27 Drug: metroNIDAZOLE IVPB 500 mg Volume: 100 ml; Route: IVPB; Rate: 200 ml/hr; Infused rv Over: 30 mins; Site: right antecubital; 05:59 Follow up: IV Status: Completed infusion; IV Intake: 100ml rv 05:27 Drug: Ketorolac IVP 15 mg Route: IVP; Site: right antecubital; rv 05:59 Follow up: Response: No adverse reaction rv 05:59 Drug: Ciprofloxacin IVPB 400 mg Volume: 200 ml; Route: IVPB; Infused Over: 60 mins; rv Site: right antecubital; 06:55 Follow up: IV Status: Completed infusion; IV Intake: 100ml rv 06:56 Follow up: Response: No adverse reaction rv Disposition Summary: 02/21/23 05:18 Discharge Ordered Location: Home sp3 Condition: Stable sp3 Diagnosis - Colitis, fatty liver sp3 Followup: sp3 - With: Private Physician - When: Upon discharge from the Emergency Department - Reason: Continuance of care Discharge Instructions: - Discharge Summary Sheet sp3 - Colitis sp3 Forms: - Medication Reconciliation Form sp3 - Thank You Letter sp3 - Antibiotic Education sp3 - Prescription Opioid Use sp3 - Patient Portal Instructions sp3 - Leadership Thank You Letter sp3 Prescriptions: - Cipro 500 mg Oral Tablet - take 1 tablet by ORAL route every 12 hours for 10 days; 20 tablet; Refills: 0, sp3 Product Selection Permitted - Flagyl 500 mg Oral Tablet - take 1 tablet by ORAL route every 8 hours for 10 days; 30 tablet; Refills: 0, sp3 Product Selection Permitted Signatures: Dispatcher [employer] Pasha Altamirano RN RN rv Laura Carpenter MD MD sp3 Fang Gibbs RN RN pf1 Corrections: (The following items were deleted from the chart) 03:14 03:02 NS 0.9% IV 1000 ml IV at 1 bolus Per protocol; 1000 mL bolus ordered. sp3 sp3
--- NOTE | 2023-02-21 05:18 | ER ---
Nurse's Notes [facility] Name: Geraldo Bradford IV Age: 27 yrs Sex: Male : 1995 Arrival Date: 02/21/2023 Time: 02:34 Bed 7 Private MD: Diagnosis: Colitis, fatty liver Presentation: 02/21 02:50 Chief complaint: Patient states: Patient C/O intermittent upper abdominal pain of pf1 10,onset Reagan, worse this AM from pain waking patient up with vomiting x 2 this AM. Patient stated vomited x 1 episode yesterday. Coronavirus screen: Vaccine status: Patient reports being unvaccinated. Client denies travel out of the [place] in the last 14 days. Client presents with at least one sign or symptom that may indicate coronavirus-19. Ebola Screen: Patient negative for fever greater than or equal to 101.5 degrees Fahrenheit, and additional compatible Ebola Virus Disease symptoms. Initial Sepsis Screen: Does the patient meet any 2 criteria? No. Patient's initial sepsis screen is negative. Does the patient have a suspected source of infection? No. Patient's initial sepsis screen is negative. Risk Assessment: Do you want to hurt yourself or someone else? Patient reports no desire to harm self or others. 02:50 Method Of Arrival: Ambulatory pf1 02:50 Acuity: MARIANNE 3 pf1 03:09 Onset of symptoms was February 15, 2023. kd3 Triage Assessment: 03:09 General: Appears uncomfortable, Behavior is calm, cooperative. Pain: Complains of pain kd3 in abdomen. GI: Abdomen is non-distended. Historical: - Allergies: 02:58 No Known Allergies; pf1 - PMHx: 02:58 acid reflux; pf1 - PSHx: 02:58 None; pf1 - Immunization history:: Adult Immunizations up to date, Client reports having NOT received the Covid vaccine. Last tetanus immunization: < 5 years ago Flu vaccine is not up to date. - Social history:: Smoking status: Patient denies any tobacco usage or history of. Patient uses alcohol, weekly. Patient/guardian denies using street drugs. Screenin:13 [facility] ED Fall Risk Assessment (Adult) History of falling in the last 3 months, kd3 including since admission No falls in past 3 months (0 pts) Confusion or Disorientation No (0 pts) Intoxicated or Sedated No (0 pts) Impaired Gait No (0 pts) Mobility Assist Device Used No (0 pt) Altered Elimination No (0 pt) Score/Fall Risk Level 0 - 2 = Low Risk Maintained a safe environment. Abuse screen: Denies threats or abuse. Denies injuries from another. Nutritional screening: No deficits noted. Tuberculosis screening: No symptoms or risk factors identified. Assessment: 03:13 General: Appears in no apparent distress. Behavior is calm, cooperative. Pain: kd3 Complains of pain in abdomen. Neuro: Level of Consciousness is awake, alert, obeys commands, Oriented to person, place, time, situation. Cardiovascular: Patient's skin is warm and dry. Respiratory: Airway is patent Trachea midline Respiratory effort is even, unlabored, Respiratory pattern is regular, symmetrical. 03:41 GI: Bowel sounds present X 4 quads. Abdomen is tender to palpation in right lower kd3 quadrant and left lower quadrant. 05:30 Reassessment: Patient and/or family updated on plan of care and expected duration. Pain rv level reassessed. Patient is alert, oriented x 3, equal unlabored respirations, skin warm/dry/pink. Vital Signs: 02:50 BP 123 / 98; Pulse 64; Resp 18; Temp 97.8; Pulse Ox 100% on R/A; Weight 104.33 kg; pf1 Height 5 ft. 10 in. ; Pain 10/10; 03:13 BP 136 / 93; Pulse 59; Resp 15; Pulse Ox 98% on R/A; kd3 03:41 BP 137 / 70; Pulse 50; Resp 18; Pulse Ox 100% on R/A; kd3 05:29 BP 127 / 88; Pulse 58; Resp 18; Temp 98; Pulse Ox 99% on R/A; rv 06:56 BP 131 / 76; Pulse 59; Resp 16; Temp 98; Pulse Ox 99% on R/A; rv 02:50 Body Mass Index 33.00 (104.33 kg, 177.8 cm) pf1 02:50 Pain Scale: Adult pf1 Jose Enrique Coma Score: 05:30 Eye Response: spontaneous(4). Motor Response: obeys commands(6). Verbal Response: rv oriented(5). Total: 15. 06:57 Eye Response: spontaneous(4). Motor Response: obeys commands(6). Verbal Response: rv oriented(5). Total: 15. ED Course: 02:36 Patient arrived in ED. [id number] 02:58 Laura Carpenter MD is Attending Physician. sp3 02:58 Triage completed. pf1 03:09 Pasha Alvarez, QIAN is Primary Nurse. rv 03:09 Arm band placed on right wrist. kd3 03:11 Inserted saline lock: 20 gauge in right antecubital area, using aseptic technique. kd3 Blood collected. 03:13 Patient has correct armband on for positive identification. Provided Education on: . kd3 03:13 CBC with Diff Sent. kd3 03:13 CMP Sent. kd3 03:13 Lipase Sent. kd3 03:13 No provider procedures requiring assistance completed. kd3 03:34 Abdomen Limited US In Process Unspecified. EDMS 04:39 CT Abd/Pelvis - IV Contrast Only In Process Unspecified. EDMS 06:57 IV discontinued, intact, bleeding controlled, No redness/swelling at site. Pressure rv dressing applied. Administered Medications: 03:14 Drug: NS 0.9% IV 1000 ml Route: IV; Rate: 1 bolus; Site: right antecubital; rv 05:29 Follow up: IV Status: Completed infusion; IV Intake: 1000ml rv 03:14 Drug: Ketorolac IVP 30 mg Route: IVP; Site: right antecubital; rv 05:29 Follow up: Response: No adverse reaction rv 03:14 Drug: Ondansetron IVP 4 mg Route: IVP; Site: right antecubital; rv 05:29 Follow up: Response: No adverse reaction rv 05:27 Drug: metroNIDAZOLE IVPB 500 mg Volume: 100 ml; Route: IVPB; Rate: 200 ml/hr; Infused rv Over: 30 mins; Site: right antecubital; 05:59 Follow up: IV Status: Completed infusion; IV Intake: 100ml rv 05:27 Drug: Ketorolac IVP 15 mg Route: IVP; Site: right antecubital; rv 05:59 Follow up: Response: No adverse reaction rv 05:59 Drug: Ciprofloxacin IVPB 400 mg Volume: 200 ml; Route: IVPB; Infused Over: 60 mins; rv Site: right antecubital; 06:55 Follow up: IV Status: Completed infusion; IV Intake: 100ml rv 06:56 Follow up: Response: No adverse reaction rv Medication: 03:13 VIS not applicable for this client. kd3 Intake: 05:29 IV: 1000ml; Total: 1000ml. rv 05:59 IV: 100ml; Total: 1100ml. rv 06:55 IV: 100ml; Total: 1200ml. rv Outcome: 05:18 Discharge ordered by . sp3 06:57 Discharged to home ambulatory. rv 06:57 Condition: improved 06:57 Discharge instructions given to patient, Instructed on discharge instructions, follow up and referral plans. medication usage, Demonstrated understanding of instructions, follow-up care, medications, Prescriptions given X 2. 07:07 Patient left the ED. aa5 Signatures: Dispatcher [employer] EDMS Jessa Ramey RN RN aa5 Pasha Alvarez RN RN rv Laura Carpenter MD MD sp3 Danya [id number] Mercedes Traore RN RN kd3 Fang Gibbs RN RN pf1
[2023-02-21] MEDS ORDERED: CIPROFLOXACIN 400mg IV 400 MG/200 ML BAG IV ONE (05:32)
[2023-02-21] MEDS ORDERED: METRONIDAZOLE 500mg IVPB 500 MG/100 ML BAG IV ONE (05:32)
[2023-02-21 05:58] LABS: Specific Gravity > 1.035 (1.005-1.030); Urine Bilirubin NEGATIVE (Negative); Urine Blood Negative (Negative); Urine Clarity Clear (Clear); Urine Color Light-Yellow (Yellow); Urine Glucose NEGATIVE (Negative); Urine Protein NEGATIVE (Negative); Urine Urobilinogen Normal (Normal)
[2023-02-21 07:17] VITALS: TEMP 98; O2SAT 99
[2023-02-21 07:19] VITALS: BP 131/76
--- NOTE | 2023-02-21 12:47 | RAD REPORT ---
EXAM DESCRIPTION: CT - Abdomen Pelvis W Contrast - 02/21/2023 5:56 am CLINICAL HISTORY: Upper abd pain, vomiting COMPARISON: None Available. TECHNIQUE: CT of the abdomen and pelvis performed following IV administration of iodinated contras t. This exam was performed according to our departmental dose-optimization program, which includes au tomated exposure control, adjustment of the mA and/or kV according to patient size and/or use of iter ative reconstruction technique. FINDINGS: Lung Bases: The visualized lung bases are clear. Bones: No destructive bone lesions identified. Abdomen: Liver: Hepatomegaly with severely decreased density. Gallbladder: No calcified gallstones. Spleen, Pancreas, and Adrenal Glands: The spleen, pancreas, and adrenal glands are unremarkable. Kidneys: No hydronephrosis or obstructing calculus. Vasculature: The aorta and IVC have normal caliber and position. The portal vein is patent. The pro ximal visceral and renal arteries are patent. Stomach: The stomach and duodenum have normal course. Other: No free intraperitoneal air. Scattered shotty superior mesenteric lymph nodes. Pelvis: Bladder: Urinary bladder is unremarkable. Bowel: No dilated loops of large or small bowel. Mild wall thickening of the proximal small bowel. Mild wall thickening of the transverse, descending, and sigmoid colon. Appendix: Normal appendix. Pelvis: Prostate is not enlarged. IMPRESSION: 1. Mild wall thickening of the proximal small bowel as well as the transverse, descend ing, and sigmoid colon. These findings could be seen with nonspecific enterocolitis. 2. Hepatomegaly and severe hepatic steatosis. Electronically signed by: Clay Alves 02/21/2023 5:13 AM CDT Due to temporary technical issues with the PACS/Fluency reporting system, reports are being signed by the in house radiologists without review as a courtesy to insure prompt reporting. The interpreting radiologist is fully responsible for the content of the report.
--- NOTE | 2023-02-21 17:26 | RAD REPORT ---
EXAM DESCRIPTION: US - Abdomen Exam Limited - 02/21/2023 3:32 am CLINICAL HISTORY: ABD PAIN TECHNIQUE: Real-time ultrasound of the right upper quadrant with image documentation. COMPARISON: No relevant prior studies available. FINDINGS: Liver: The liver is diffusely echogenic compatible with steatosis. Focal fatty sparing adjacent to the gallbladder fossa. No intrahepatic bile duct dilation. Gallbladder: Unremarkable. No gallstones, gallbladder wall thickening or pericholecystic fluid. Common bile duct: Unremarkable as visualized. No stones. No dilation. Pancreas: Unremarkable as visualized. Right kidney: Unremarkable. No stones. No solid mass. No hydronephrosis. IMPRESSION: No sonographic evidence of cholelithiasis or acute cholecystitis. Electronically signed by: Lexii Ngo MD 02/21/2023 3:56 AM CDT Due to temporary technical issues with the PACS/Fluency reporting system, reports are being signed by the in house radiologists without review as a courtesy to insure prompt reporting. The interpreting radiologist is fully responsible for the content of the report.
== END 2023-02-21 07:07 | disposition home or self-care (01) ==
LOC: ER 02:34
DX: K52.9 Noninfective gastroenteritis and colitis, unspecified (principal); K76.0 Fatty (change of) liver, not elsewhere classified
CPT/HCPCS: 36415; 74177; 76705; 80053; 81003; 83690; 85025; J0744; J2405; J7030; Q9967